=== PATIENT | female | born 1940 | race Caucasian/White ===

== ENCOUNTER 2020-12-08 12:42 | Outpatient (RCR) | payer MEDICARE, SELFPAY ==
[2020-12-08] MEDS: FAMOTIDINE 20 MG TABLET PO (14:05)
[2020-12-08] MEDS: ACETAMINOPHEN 325 MG TABLET 650 MG PO (14:05)
[2020-12-08] MEDS: diphenhydrAMINE HCl CAP 25 MG CAPSULE PO (14:05)
[2020-12-08 14:20] VITALS: BP 158/67; PULSE 65; RESP 18; TEMP 36.2; O2SAT 97
[2020-12-08 15:38] VITALS: BP 196/71
== END 2020-12-08 16:00 | disposition home or self-care (01) ==
LOC: AMCINF 12:42
PROVIDERS: PCP Family Medicine; Referring Provider Family Medicine; Visit Provider Internal Medicine Hematology & Oncology
DX: Z23 Encounter for immunization (principal); U07.1 COVID-19; I10 Essential (primary) hypertension
CPT/HCPCS: A9270; J7050; M0243

== ENCOUNTER → 2021-04-30 10:44 | Outpatient (CLI) | payer MEDICARE, SELFPAY ==
--- NOTE | ~2021-04-30 | XR_ITS ---
XR knee LT 3V 04/30/2021 11:39 Indication: Chronic left knee pain Procedure: 3 views left knee Comparison: No prior studies for comparison. Findings: There is mild-moderate osteoarthritis of the left knee. There is osteopenia. No acute fract ure or traumatic malalignment. No significant joint effusion. Impression: 1: Mild-moderate osteoarthritis of the left knee, most advanced in the patellofemoral compartment. Reviewed, dictated and finalized at location B. O COORDINATOR Impression: 1: Mild-moderate osteoarthritis of the left knee, most advanced in the patellof emoral compartment.
--- NOTE | ~2021-04-30 | XR_ITS ---
XR knee RT 3V 04/30/2021 11:40 Indication: Chronic right knee pain. Procedure: 3 views right knee Comparison: 10/11/2018 Findings: There is severe osteoarthritis of the right knee. No acute fracture, subluxation or disloca tion. No significant joint effusion. No foreign bodies. Impression: 1: Severe osteoarthritis of the right knee. Reviewed, dictated and finalized at location B. CIATE PROFESSOR OF AUTOMATION Impression: 1: Severe osteoarthritis of the right knee.
--- NOTE | ~2021-04-30 | XR_ITS ---
XR lumbar spine min 4V DATE: 04/30/2021 11:39 INDICATION: Low back pain TECHNIQUE: AP, lateral, coned lateral lumbosacral and bilateral oblique views COMPARISON: None FINDINGS: There is diffuse osteopenia. There is slight dextroscoliosis of the lumbar spine. There are 6 functional lumbar vertebrae. There is degenerative change at the apophyseal joints in the mid to lower lumbar and lumbosacral area with associated approximately 8 mm grade 1 anterolisthesis at L4-5. There is mild degenerative disease at L1-2 and L2-3, moderate degenerative disc disease at L3-4 and L 5-S1 and moderately severe degenerative disc disease at L4-5. No fracture or bone destruction of the lumbar spine. Included lower thoracic and lumbar pedicles are intact. The sacroiliac joints are normal. IMPRESSION: Osteopenia Multilevel degenerative disc disease, most pronounced at L4-5 Degenerative changes apophyseal joints with associated grade 1 anterolisthesis at L4-5 Reviewed, dictated and finalized at location A. BURNER
== END ==
PROVIDERS: PCP Family Medicine; Visit Provider Family Medicine
DX: M85.88 Other specified disorders of bone density and structure, other site (principal); M51.36 Other intervertebral disc degeneration, lumbar region; M17.0 Bilateral primary osteoarthritis of knee
CPT/HCPCS: 72110; 73562

== ENCOUNTER 2021-07-09 09:41 | Outpatient (CLI) | payer MEDICARE, SELFPAY ==
[2021-07-09 10:32] LABS: Basophils Absolute Auto 0.1 K/mm3 (0.0-0.1); Basophils Percent Auto 0.7 % (0.2-1.2); Eosinophils Absolute Auto 0.4 K/mm3 (0-0.3); Eosinophils Percent Auto 4.3 % (0-4.4); Hematocrit 44.2 % (37.0-47.0); Hemoglobin 14.4 g/dL (12.0-15.0); Immature Granulocyte Absolute 0.03 K/mm3 (0.00-0.031); Immature Granulocyte Percent A 0.4 % (0-0.5); Lymphocytes Absolute Auto 2.71 K/mm3 (0.9-3.2); Lymphocytes Percent Auto 33.1 % (18.3-44.2); Mean Corpuscular HGB Conc 32.6 g/dl (32-36); Mean Corpuscular Hemoglobin 30.6 pg (26-34); Mean Platelet Volume 9.9 fl (7.4-10.4); Monocytes Absolute Auto 0.6 K/mm3 (0.1-0.6); Monocytes Percent Auto 6.8 % (2.6-8.5); Neutrophils Absolute Auto 4.5 K/mm3 (1.3-6.7); Neutrophils Percent Auto 54.7 % (45.5-73.1); Platelet Count Result 282 k/mm3 (150-375); Red Cell Distribution Width 13.4 % (11.5-14.5); White Blood Count 8.2 K/mm3 (4.5-10.0)
[2021-07-09 10:41] LABS: Hemoglobin A1C 5.4 % (<5.7)
[2021-07-09 10:47] LABS: Alanine Aminotransferase 22 U/L (4-35); Albumin Level 4.3 g/dL (3.5-5.1); Alkaline Phosphatase 89 U/L (38-126); Anion Gap 6 mmol/L (8-16); Aspartate Amino Transferase 25 U/L (14-36); Bilirubin,Total 0.6 mg/dL (0.2-1.3); Blood Urea Nitrogen 19 mg/dL (7-17); Calcium 9.5 mg/dL (8.4-10.2); Carbon Dioxide 30 mmol/L (22-30); Chloride 104 mmol/L (98-107); Cholesterol 177 mg/dL (0-200); Estimated Glomerular Filt Rate > 60; Glucose 111 mg/dL (65-110); HDL Direct 62 mg/dL; Potassium 4.1 mmol/L (3.4-5.0); Sodium 140 mmol/L (137-145); Triglycerides 136 mg/dL (<150)
[2021-07-09 10:51] LABS: Iron 103 ug/dL (37-170)
[2021-07-09 11:03] LABS: LDL Cholesterol Direct 70 mg/dL
[2021-07-09 11:21] LABS: Percent Iron Saturation 32 % (20-50)
[2021-07-09 11:59] LABS: Folic Acid > 20.0 ng/mL (2.76->20); Vitamin B12 > 1000.0 pg/mL (239-931)
[2021-07-13 01:47] LABS: Vitamin D 1,25 (OH)2 Total 50 pg/mL (18-72); Vitamin D2 1,25 (OH)2 <8 pg/mL; Vitamin D3 1,25 (OH)2 50 pg/mL
== END 2021-07-09 09:42 | disposition home or self-care (01) ==
LOC: ANHLAB 09:45
PROVIDERS: PCP Family Medicine; Visit Provider Family Medicine
DX: R73.01 Impaired fasting glucose (principal); D64.9 Anemia, unspecified; E78.2 Mixed hyperlipidemia; E55.9 Vitamin D deficiency, unspecified
CPT/HCPCS: 36415; 80048; 80061; 80076; 82607; 82652; 82728; 82746; 83036; 83540; 83550; 84443; 85025

== ENCOUNTER 2022-03-05 09:38 | Outpatient (CLI) | payer MEDICARE, SELFPAY ==
[2022-03-05 10:26] LABS: Basophils Percent Auto 0.5 % (0.2-1.2); Eosinophils Absolute Auto 0.4 K/mm3 (0-0.3); Eosinophils Percent Auto 5.3 % (0-4.4); Hematocrit 40.8 % (37.0-47.0); Hemoglobin 13.5 g/dL (12.0-15.0); Immature Granulocyte Absolute 0.03 K/mm3 (0.00-0.031); Immature Granulocyte Percent A 0.4 % (0-0.5); Lymphocytes Absolute Auto 2.66 K/mm3 (0.9-3.2); Mean Corpuscular HGB Conc 33.1 g/dl (32-36); Mean Corpuscular Volume 93.8 fl (80-100); Monocytes Absolute Auto 0.4 K/mm3 (0.1-0.6); Monocytes Percent Auto 5.8 % (2.6-8.5); Platelet Count Result 256 k/mm3 (150-375); Red Blood Count 4.35 M/mm3 (4.2-5.4); Red Cell Distribution Width 13.2 % (11.5-14.5); White Blood Count 7.6 K/mm3 (4.5-10.0)
[2022-03-05 10:29] LABS: Alanine Aminotransferase 21 U/L (6-35); Albumin Level 4.3 g/dL (3.5-5.1); Alkaline Phosphatase 98 U/L (38-126); Anion Gap 8 mmol/L (8-16); Aspartate Amino Transferase 20 U/L (14-36); Bilirubin,Total 0.8 mg/dL (0.2-1.3); Blood Urea Nitrogen 18 mg/dL (7-17); Calcium 8.9 mg/dL (8.4-10.2); Carbon Dioxide 27 mmol/L (22-30); Chloride 106 mmol/L (98-107); Cholesterol 163 mg/dL (0-200); Estimated Glomerular Filt Rate > 60; Glucose 123 mg/dL (65-110); HDL Direct 60 mg/dL; Potassium 4.1 mmol/L (3.4-5.0); Sodium 141 mmol/L (137-145); Triglycerides 140 mg/dL (<150)
[2022-03-05 10:38] LABS: Hemoglobin A1C 5.9 % (<5.7)
[2022-03-05 10:39] LABS: LDL Cholesterol Direct 66 mg/dL
[2022-03-05 10:53] LABS: Iron 109 ug/dL (37-170)
[2022-03-05 11:02] LABS: Percent Iron Saturation 33 % (20-50)
[2022-03-05 11:02] LABS: Appearance Urine Slightly Cloudy (Clear); Bilirubin Urine Negative (Negative); Blood Urine Negative (Negative); Color Urine Yellow (Yellow); Glucose Urine UA Negative (Negative); Ketones Urine Negative (Negative); Leukocyte Esterase Ur Trace LEU/UL (NEGATIVE); Nitrate Urine Negative (Negative); Protein Urine Negative (Negative); Urobilinogen Urine 0.2 mg/dL (<2.0)
[2022-03-05 11:20] LABS: Bacteria Urine Trace /hpf; Mucus Urine Few /lpf; RBC Urine 0-2 /hpf (0-2); Squamous Epithelial Cell Urine Moderate /hpf (Few)
[2022-03-05 11:22] LABS: Add Urine Microscopic? YES
[2022-03-05 11:33] LABS: Folic Acid 16.7 ng/mL (2.76->20)
== END 2022-03-05 09:39 | disposition home or self-care (01) ==
LOC: ANHLAB 09:41
PROVIDERS: PCP Family Medicine; Visit Provider Family Medicine
DX: R41.0 Disorientation, unspecified (principal); E78.2 Mixed hyperlipidemia; D64.9 Anemia, unspecified; R73.01 Impaired fasting glucose
CPT/HCPCS: 36415; 80048; 80061; 80076; 81001; 82607; 82728; 82746; 83036; 83540; 83550; 84443; 85025; 87086; 87088

== ENCOUNTER 2022-07-09 10:36 | Outpatient (CLI) | payer MEDICARE, SELFPAY ==
[2022-07-09 12:57] LABS: Basophils Absolute Auto 0.1 K/mm3 (0.0-0.1); Basophils Percent Auto 0.6 % (0.2-1.2); Eosinophils Absolute Auto 0.3 K/mm3 (0-0.3); Eosinophils Percent Auto 2.8 % (0-4.4); Hematocrit 44.5 % (37.0-47.0); Hemoglobin 14.8 g/dL (12.0-15.0); Immature Granulocyte Absolute 0.03 K/mm3 (0.00-0.031); Immature Granulocyte Percent A 0.3 % (0-0.5); Lymphocytes Absolute Auto 2.66 K/mm3 (0.9-3.2); Lymphocytes Percent Auto 26.3 % (18.3-44.2); Mean Corpuscular HGB Conc 33.3 g/dl (32-36); Mean Corpuscular Hemoglobin 30.8 pg (26-34); Mean Corpuscular Volume 92.7 fl (80-100); Mean Platelet Volume 10.1 fl (7.4-10.4); Monocytes Absolute Auto 0.6 K/mm3 (0.1-0.6); Monocytes Percent Auto 6.1 % (2.6-8.5); Neutrophils Absolute Auto 6.5 K/mm3 (1.3-6.7); Neutrophils Percent Auto 63.9 % (45.5-73.1); Platelet Count Result 299 k/mm3 (150-375); Red Cell Distribution Width 13.4 % (11.5-14.5); White Blood Count 10.1 K/mm3 (4.5-10.0)
[2022-07-09 13:06] LABS: Prothrombin Time 12.3 Seconds (11.1-14.7)
[2022-07-09 13:07] LABS: Partial Thromboplastin Time 27.9 SECONDS (22.3-36.8)
[2022-07-09 14:11] LABS: Alanine Aminotransferase 23 U/L (6-35); Albumin Level 4.5 g/dL (3.5-5.1); Alkaline Phosphatase 104 U/L (38-126); Amylase 80 U/L (30-110); Aspartate Amino Transferase 23 U/L (14-36); Bilirubin,Total 0.8 mg/dL (0.2-1.3)
[2022-07-09 14:12] LABS: Iron 92 ug/dL (37-170)
[2022-07-09 14:27] LABS: Percent Iron Saturation 27 % (20-50)
[2022-07-09 15:24] LABS: Folic Acid 14.3 ng/mL (2.76->20)
== END 2022-07-09 10:37 | disposition home or self-care (01) ==
PROVIDERS: PCP Family Medicine; Visit Provider Family Medicine
DX: K62.5 Hemorrhage of anus and rectum (principal); R41.0 Disorientation, unspecified; R10.9 Unspecified abdominal pain; R35.0 Frequency of micturition
CPT/HCPCS: 36415; 80076; 82150; 82607; 82728; 82746; 83540; 83550; 84443; 85025; 85610; 85730

== ENCOUNTER 2022-12-01 09:38 | Outpatient (CLI) | payer MEDICARE, SELFPAY ==
[2022-12-01 10:29] LABS: Appearance Urine Clear (Clear); Bacteria Urine None Seen /hpf; Bilirubin Urine Negative (Negative); Blood Urine Negative (Negative); Color Urine Yellow (Yellow); Glucose Urine UA Negative (Negative); Ketones Urine Negative (Negative); Leukocyte Esterase Ur Trace LEU/UL (NEGATIVE); Nitrate Urine Negative (Negative); Protein Urine Negative (Negative); RBC Urine 0-2 /hpf (0-2); Specific Grav Ur 1.018 (1.001-1.035); Squamous Epithelial Cell Urine Few /hpf (Few); Urobilinogen Urine 0.2 mg/dL (<2.0); WBC Urine 0-5 /hpf (0-3)
[2022-12-01 10:42] LABS: Add Urine Microscopic? YES
[2022-12-01 10:43] LABS: Anion Gap 3 mmol/L (8-16); Blood Urea Nitrogen 16 mg/dL (7-17); Carbon Dioxide 31 mmol/L (22-30); Chloride 104 mmol/L (98-107); Cholesterol 296 mg/dL (0-200); Estimated Glomerular Filt Rate > 60; Glucose 121 mg/dL (65-110); HDL Direct 55 mg/dL; Potassium 4.2 mmol/L (3.4-5.0); Sodium 138 mmol/L (137-145); Triglycerides 226 mg/dL (<150)
[2022-12-01 10:46] LABS: Hemoglobin A1C 5.7 % (<5.7)
[2022-12-01 10:53] LABS: LDL Cholesterol Direct 181 mg/dL
== END 2022-12-01 09:39 | disposition home or self-care (01) ==
PROVIDERS: PCP Family Medicine; Visit Provider Family Medicine
DX: R35.0 Frequency of micturition (principal); E78.2 Mixed hyperlipidemia; R73.01 Impaired fasting glucose
CPT/HCPCS: 36415; 80048; 80061; 81001; 83036; 87086; 87088

== ENCOUNTER 2025-02-03 07:37 | Emergency (ER) | payer MEDICARE, SELFPAY ==
--- OUTSIDE RECORDS SUMMARY | 2008-12-04 02:45 | XMS_ITS | Continuity of Care Document ---
Author Organization [facility] Address [address] [facility] [address] [place] [address] Phone Care Team Providers Care Designer And Patternmaker Name Role Phone Thomason OD, Bola Unavailable Unavailable Procedures Procedure Date No Charge Glasses Check Eye Exam & Treatment Office/outpatient Visit, Est Visual Functional Status Assessed Office/outpatient Visit, Est Advance Directives Directive Yes / No Effective Date File Name No Information Encounters Encounter Description Practice Location Reason(s) For Visit Diagnoses Date Provider Providers Copied on Encounter [facility], [address] [place] [address] [address], [place], [place], [id number], [place] tel:[phone] [facility] No Information Sep-0 3-200 9 Thomason OD Bola. [address] [facility] [facility] [address] , [address], [place], [address], [place]. tel:[phone] [facility], [address] [place] [address] [address], [place], [place], [id number], [place] tel:[phone] SEC [facility] No Information Oct-0 1-200 8 Thomason OD Bola. [address] [facility] , [address], [place], [address], [place]. tel:[phone] Office/outpat ient Visit, Est [facility], [address] [place] [address] [address], [place], [place], [id number], [place] tel:[phone] SEC [facility] No Information Sep-2 8-200 7 Gideon Edbridger. [address] [facility] , [address], [place], [address], [place]. tel:[phone] Office/outpat ient Visit, [facility] Eye [facility], [address], [place], [place], [id number], [place] tel:[phone] SEC [facility] No Information Mar-3 0-200 7 Gideon Kemp. [address] [facility] , [address], [place], [address], [place]. tel:[phone] Family History Family Member Type Diagnosis Age At Onset No Information Payers Payer name Insurance type Covered republican ID Authoriza tion(s) No Information Social History Type Description Quantity Date Captured Comments Sex Female Smoking Status No Information Chief Complaint And Reason For Visit No Information Reason For Referral Reason For Referral No Information History Of Present Illness Encounter Date Complaint History Of Prese nt Illness No Information Functional Status Date Functional Assessmen t No Information Instructions Date Instruction Additional Infor mation No Information Assessments Type Assessment Date No Information Patient Care Teams Name Effective Dates (start - stop) Status Members No Information
--- OUTSIDE RECORDS SUMMARY | 2008-12-04 02:45 | XMS_ITS | Continuity of Care Document ---
Author Organization [facility] Address [address] [facility] [address] [place] [address] Phone Care Team Providers Care Linen Clerk Name Role Phone Thomason OD, Bola Unavailable Unavailable Procedures Procedure Date No Charge Glasses Check Eye Exam & Treatment Office/outpatient Visit, Est Visual Functional Status Assessed Office/outpatient Visit, Est Advance Directives Directive Yes / No Effective Date File Name No Information Encounters Encounter Description Practice Location Reason(s) For Visit Diagnoses Date Provider Providers Copied on Encounter [facility], [address] [place] [address] [address], [place], [place], [id number], [place] tel:[phone] SEC [facility] No Information Sep-0 3-200 9 Thomason OD Bola. [address] [facility] [address] [address] , [address], [place], [address], [place]. tel:[phone] [facility], [address] [place] [address] [address], [place], [place], [id number], [place] tel:[phone] SEC [facility] No Information Oct-0 1-200 8 Thomason OD Bola. [address] [facility] , [address], [place], [address], [place]. tel:[phone] Office/outpat ient Visit, Est [facility], [address] [place] [address] [address], [place], [place], [id number], [place] tel:[phone] SEC [facility] No Information Sep-2 8-200 7 Gideon Edbridger. [address] [facility] , [address], [place], [address], [place]. tel:[phone] Office/outpat ient Visit, [facility] Eye [facility], [address], [place], [place], [id number], [place] tel:[phone] SEC [facility] No Information Mar-3 0-200 7 Gideon Kemp. [address] [facility] , [address], [place], [address], [place]. tel:[phone] Family History Family Member Type Diagnosis Age At Onset No Information Payers Payer name Insurance type Covered constitution party ID Authoriza tion(s) No Information Social History [...]
--- NOTE | ~2025-02-03 | CT_ITS ---
EXAMINATION: CT abdomen pelvis w con DATE: 02/03/2025 09:08 INDICATION: Abdominal pain. Constipation. TECHNIQUE: Computed tomography (CT) of the abdomen and pelvis was performed with 100 mL Omnipaque 350 intravenous contrast. Automated exposure control and iterative reconstruction technique were employed. The dose-length product was 706.19 mGy-cm. COMPARISON: None. FINDINGS: The visualized portions of the lung bases demonstrate mild atelectasis. There is mild bronchiectasis bilaterally. No pleural effusion. The heart size is normal. There are coronary artery calcifications. No pericardial effusion. Calcified right hilar and paraesophageal lymph nodes are consistent with old granulomatous disease. The liver, gallbladder, spleen, pancreas, and adrenal glands are normal. There is cortical thinning of the kidneys. There are cysts in the kidneys measuring up to 7 mm on the left. There is a 3 mm stone in right kidney. Stool distends the rectum. There is diverticulosis of the colon without evidence of diverticulitis. The appendix is normal. There are no pathologically enlarged lymph nodes. There is no free intraperitoneal fluid. There is severe lumbar spondylosis. There are bridging endplate osteophytes at multiple levels in the thoracic spine, consistent with diffuse idiopathic skeletal hyperostosis (DISH). There is mild chronic anterior wedging of multiple thoracic vertebral bodies. IMPRESSION: 1. Stool distends the rectum. Reviewed, dictated and finalized at location E. APEUTIC ASSISTANT
--- OUTSIDE RECORDS SUMMARY | 2025-02-03 07:40 | XMS_ITS | Clinical Summary ---
Author Organization [facility] Address [address] [place] [address] Care Team Providers Care Technical Services Consultant Name Role Phone Terry Cook MD Primary Care Provider [phone] Allergies No known active allergies Medications atorvastatin (LIPITOR) 20 mg tablet Take 20 mg by mouth daily 1 Active meloxicam (MOBIC) 15 mg tablet TAKE 1 TABLET BY MOUTH DAILY NEEDED FOR PAIN 1 Active metFORMIN XR (GLUCOPHAGE XR) 500 mg 24 hr tablet Take 500 mg by mouth daily with breakfast 1 Active metoprolol (LOPRESSOR) 100 mg tablet Take 100 mg by mouth every 12 (twelve) hours 1 Active cyanocobalamin (Vitamin B-12) 100 mcg tabletIndicatio ns:Prevention of Vitamin B12 Deficiency Take 100 mcg by mouth daily Active cholecalciferol (VITAMIN D-3) 2000 unit capsule Take 2,000 Units by mouth daily Active amLODIPine (NORVASC) 5 mg tabletIndicatio ns:hypertension Take 1 tablet (5 mg total) by mouth daily 30 tablet 1 Active Active Problems Problem Noted Date Diagnosed Date COVID-19 12/15/2020 Hypertensive crisis 12/15/2020 Hyponatremia 12/15/2020 Hypokalemia 12/15/2020 Adverse effect of thiazide diuretic 12/15/2020 Abnormal urinalysis 12/15/2020 Mild cognitive impairment 12/15/2020 Hyperlipidemia associated with type 2 diabetes m ellitus 12/15/2020 Class 1 obesity due to exces s calories without serious comorbidity with body mass index (BMI) of 33.0 to 33.9 in adult 12/15/2020 Toxic metabolic encephalopathy 12/09/2020 Social History Tobacco Use Types Packs/Day Years Used Date Smoking Tobacco: Never Smokeless Tobacco: Never AUDIT-C Answer Date Recorded Q1: How often do you have a drink containing alc ohol? Never 12/09/2020 Average Number of Drinks Not on file 021 Frequency of Binge Drinking Not on file 11/2020 Personal Safety Answer Date Recorded Getting School Help Needed Not on file 06/03 Comments Unknown Sex and Gender Information Value Date Recorded Sex Assigned at Not on file Legal Sex Female 11:35 AM CDT Gender Identity Not on file Sexual Orientation Not on file Last Filed Vital Signs Vital Sign Reading Time Taken Comments Blood Pressure 160/82 12/10/2020 3:00 PM CDT Pulse 87 12/10/2020 3:00 PM CDT Temperature 36.6 C (97.9 F) 12/10/2020 3:00 PM CDT Respiratory Rate 18 12/10/2020 3:00 PM CDT Oxygen Saturation 96% 12/10/2020 3:00 PM CDT Inhaled Oxygen Concentration - - Weight 81.1 kg (178 lb 12.7 oz) 021 11:47 AM CDT Height 154.9 cm (5' 1) 12/09/2020 11:4 7 AM CDT Body Mass Index 33.78 12/09/2020 11:47 AM CDT Plan of Treatment Not on file Insurance MEDICARE MEDICARE Advance Directives For more information, please contact: [phone] * LIMITED - No CPR (Latest Code Status on File) Date Activated Date Inactivated Comments 12/09/2020 8:09 PM 12/10/2020 10:07 PM Question Answer Comments Provide aggressive medical m anagement before a full cardiopulmonary arrest occurs. Use antibiotics, IV Fluids, and medical treatment unless specifically selected below: No intubation * Full Code Date Activated Date Inactivated Comments 12/09/2020 7:12 PM 12/09/2020 8:09 PM Care Teams Technical Services Consultant Relationship Specialty Start Date End Date Terry Cook MD [id number] [address] PCP - General Family Medicine 12/09/20
[2025-02-03 07:46] VITALS: BP 186/79; PULSE 89; RESP 16; TEMP 36.6; O2SAT 99
[2025-02-03 08:23] LABS: Hematocrit 40.8 % (37.0-47.0); Hemoglobin 14.0 g/dL (12.0-15.0); Immature Granulocyte Percent A 0.3 % (0-0.5); Lymphocytes Absolute Auto 1.43 K/mm3 (0.9-3.2); Mean Corpuscular HGB Conc 34.3 g/dl (32-36); Mean Corpuscular Hemoglobin 30.7 pg (26-34); Mean Corpuscular Volume 89.5 fl (80-100); Nucleated Red Blood Cells Absolute Auto 0.000 K/mm3 (0.0-0.012); Nucleated Red Blood Cells Perc 0.0 % (0.0-0.2); Platelet Count Result 247 k/mm3 (150-375); Red Blood Count 4.56 M/mm3 (4.2-5.4); White Blood Count 10.1 K/mm3 (4.5-10.0)
--- OUTSIDE RECORDS SUMMARY | 2025-02-03 08:37 | XMS_ITS | Clinical Summary ---
Author Organization [facility] Address [address] [place] [address] Care Team Providers Care Processing Inspector Name Role Phone Terry Cook MD Primary Care Provider [phone] Allergies No known active allergies Medications atorvastatin [...] Advance Directives For more information, please contact: [phone] * LIMITED - No CPR (Latest Code [...] 7:12 PM 12/09/2020 8:09 PM Care Teams Processing Inspector Relationship Specialty Start Date End Date Terry Cook MD [id number] [address] PCP - General Family Medicine 12/09/20
[2025-02-03 08:54] LABS: Alanine Aminotransferase 19 U/L (6-35); Albumin Level 4.1 g/dL (3.5-5.1); Alkaline Phosphatase 70 U/L (38-126); Anion Gap 7 mmol/L (4-12); Aspartate Amino Transferase 30 U/L (14-36); Bilirubin,Total 1.2 mg/dL (0.2-1.3); Blood Urea Nitrogen 13 mg/dL (7-17); Calcium 8.7 mg/dL (8.4-10.2); Carbon Dioxide 22 mmol/L (22-30); Chloride 98 mmol/L (98-107); Estimated CRCL calculation 43 ml/min; Estimated Glomerular Filt Rate > 60; Glucose 119 mg/dL (65-110); Lipase 53 U/L (23-300); Potassium 4.3 mmol/L (3.4-5.0); Sodium 127 mmol/L (137-145); Total Protein 6.9 g/dL (6.3-8.2)
[2025-02-03 09:33] LABS: Add Urine Microscopic? YES; Appearance Urine Cloudy (Clear); Glucose Urine UA Negative (Negative); Leukocyte Esterase Ur 3+ LEU/UL (Negative); Nitrate Urine Negative (Negative); Non Pathogenic Casts 0-2; Specific Grav Ur 1.014 (1.001-1.035)
--- NOTE | 2025-02-03 09:36 | ED_ITS ---
HPI - Abdominal Pain General Chief Complaint: Abdominal Pain Stated Complaint: abdominal pain, constipation Time Seen by Provider: 02/03/25 07:44 History of Present Illness HPI narrative: Patient presents here with constipation for last 5 days, has not been above ago, had try some stool softeners without improvement. No abdominal pain just a sensation of fullness. Had been diagnosed with a urinary tract infection and given ciprofloxacin, before this started. Does not feel like her UTI has gone away. No nausea vomiting Related Data Home Medications ?Medication ?Instructions ?Recorded ?Confirmed ?Last Taken ?Type acetaminophen 500 mg capsule 500 mg PO Q6H PRN 4 01/21/25 Unknown History omega-3 250 wq-zuv-app-lutein 2.5 cap PO 04/13/2301/02 Unknown History mg-zeaxanthin 0.5 mg capsule ([facility]) ciprofloxacin HCl 250 mg tablet 250 mg PO BID 01/24/25 Unknown History Allergies Allergy/AdvReac Type Severity Reaction Status Date / Time No Known Allergies Allergy Verified 02/03/25 07:50 Review of Systems 2 Review of Systems: All systems reviewed & are unremarkable except as noted in HPI and below PMFSH Past Medical History Medical History (Reviewed 01/21/25 @ 07:10 by Chiqui Chung, [facility]) Candidiasis of breast At moderate risk for fall BMI 35.0-35.9,adult Obesity (BMI 35.0-39.9 without comorbidity) Neoplasm of skin of face (~12/01/22) 0.9 cm raised, pearly, macule right maxillary area suspicious for basal cell Candidiasis of genitalia in female Yeast vaginitis Arthritis of right shoulder region Chronic pain in right shoulder (~08/2022) UTI (urinary tract infection) (07/26/22) Urine culture was negative on 12/01/2022. Muscle spasm (~07/08/22) Frequent urination (~07/08/22) Functional memory problem (~2021) vitamin B12 517, folic acid 14.3, thyroid function normal with TSH 1.6 on 07/09/2022. cognitive testing score 2030 12/01/2022. Abdominal pain (~07/09/22) Amylase 80. Normal liver enzymes 07/09/2022. Rectal bleeding (~07/09/22) Confusion (~01/2022) Labs on 03/05/2022 were unremarkable with vitamin B12 572, folic acid 16.7, TSH 1.58. Migraine without aura and without status migrainosus, not intractable (~2020) Abnormal fasting glucose Fasting glucose 111 with hemoglobin A1c 5.4 on 07/09/2021. Glucose 123 with hemoglobin A1c 5.9 on 03/05/2022. Fasting glucose 121 with hemoglobin A1c 5.7 on 12/01/2022. Degenerative arthritis of knee, bilateral Hypertension Chronic low back pain without sciatica (~04/30/21) x-ray of the lumbar spine 04/30/2021 reveals diffuse osteopenia with severe degenerative disc disease at L4-L5 with 8 mm of anterolisthesis of L4 on L5 and diffuse degenerative changes. Chronic pain of right knee X-ray 04/30/2021 with severe tricompartmental osteoarthritis Dysphagia GERD (gastroesophageal reflux disease) Family History Family History (Reviewed 01/21/25 @ 07:10 by Chiqui Chung [facility]) Father Patient's father is , Onset Age: 90 Malignant neoplasm of prostate Grandparent Family history of Parkinson's disease Family history of Alzheimer's disease Mother Family history of malignant neoplasm of bone, Onset Age: 78 Sibling Heart disease Social History Social History (Updated 01/21/25 @ 07:47 by Lara Isaac [facility]) Smoking status: Never smoker Second hand tobacco smoke exposure: Yes Alcohol intake: never Substance use: never Substance use type: does not use Lack of Transportation: No Lack of Food: Never True Current Housing: I Have Housing Concerned About Future Housing: No Difficulty Paying Gas/Electric Bills: No Difficulty Paying for Meds: No Currently Unemployed: No Education: High School Diploma/GED Difficulty w/ Childcare or Family Care: No Living arrangements: alone Occupation/Education: retired 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 EYES: EOMI, conjunctiva normal ENT: Hearing grossly intact LUNGS: Nonlabored breathing. HEART: [Regular rate and rhythm] ABD: [Soft], [nontender to palpation] RECTAL: Brownish stool with some hemorrhoids, impacted hard stool with a tiny bit of bright red blood EXT: Normal range of motion SKIN: [No rashes or lesions.] NEURO: [Alert and oriented x 3. No gross focal sensory or strength deficits.] PSYCH: Normal affect Procedures Rectal Disimpaction Rectal Disimpaction #1: Rectal Disimpaction Date: 02/03/25 Indication: fecal impaction Procedural Sedation: No Sedation/Analgesia: none Technique: manual disimpaction with gloved finger Result: significant stool output Patient Tolerated Procedure: well and no complications Course Vital Signs Vital signs: Vital Signs Temperature 97.8 F 02/03/25 07:46 Pulse Rate 89 02/03/25 07:46 Respiratory Rate 16 02/03/25 07:46 Blood Pressure 186/79 H 02/03/25 07:46 Pulse Oximetry 99 02/03/25 07:46 Oxygen Delivery Room Air 02/03/25 07:46 Temperature 97.8 F 02/03/25 07:46 Pulse Rate 86 02/03/25 10:39 Respiratory Rate 20 02/03/25 10:39 Blood Pressure 155/53 H 02/03/25 10:39 Pulse Oximetry 100 02/03/25 10:39 Oxygen Delivery Room Air 02/03/25 07:46 MDM - Abdominal Pain MDM Narrative Medical decision making narrative: Patient presenting with constipation, she also feels like her UTI symptoms have been persistent despite antibiotics. She does state that she had tried using toothbrush to help loosen her stool and noticed some blood so stopped; this is several days ago. Her family also tried giving her some MiraLax and a suppository but did not work. She is well-appearing, as your soft nontender, on rectal exam she does have impacted stool, a tiny bit of bright red blood but nothing significant, stool is grossly brown. CT just shows stool distending rectum, patient agreeable to manual disimpaction at this time. She does also appear to have a UTI so I will give her dose of ceftriaxone and trial a different kind of antibiotic. Her sodium is on the lower side, will be given fluids, discussed with patient she needs follow-up with her doctor for repeat Patient tolerated procedure quite well, on re-evaluation feels better, very large amount of stool disimpacted. Will give MiraLax and Augmentin prescription with strict return precautions. Patient agreeable to plan Lab Data 02/03/25 08:15 02/03/25 08:15 Labs: Lab Results 02/03/25 02/03/25 Range/Units 08:15 09:20 WBC 10.1 H (4.5-10.0) K/mm3 RBC 4.56 (4.2-5.4) M/mm3 Hgb 14.0 (12.0-15.0) g/dL Hct 40.8 (37.0-47.0) % MCV 89.5 (80-100) fl MCH 30.7 (26-34) pg MCHC 34.3 (32-36) g/dl RDW 13.2 (11.5-14.5) % Plt Count 247 (150-375) k/mm3 MPV 9.5 (7.4-10.4) fl Immature Gran % (Auto) 0.3 (0-0.5) % Neut % (Auto) 76.6 H (45.5-73.1) % Lymph % (Auto) 14.2 L (18.3-44.2) % [place] % (Auto) 7.8 (2.6-8.5) % Eos % (Auto) 0.9 (0-4.4) % Baso % (Auto) 0.2 (0.2-1.2) % Lymph # (Auto) 1.43 (0.9-3.2) K/mm3 [place] # (Auto) 0.8 H (0.1-0.6) K/mm3 Eos # (Auto) 0.1 (0-0.3) K/mm3 Baso # (Auto) 0.0 (0.0-0.1) K/mm3 Abs Immat Gran (auto) 0.03 (0.00-0.031) K/mm3 Absolute Neuts (auto) 7.7 H (1.3-6.7) K/mm3 Absolute Nucleated RBC 0.000 (0.0-0.012) K/mm3 Nucleated RBC % 0.0 (0.0-0.2) % Sodium 127 L (137-145) mmol/L Potassium 4.3 (3.4-5.0) mmol/L Chloride 98 (98-107) mmol/L Carbon Dioxide 22 (22-30) mmol/L Anion Gap 7 (4-12) mmol/L BUN 13 (7-17) mg/dL Creatinine 0.78 (0.7-1.0) mg/dL Estim Creat Clear Calc 43 ml/min Estimated GFR > 60 (59 - ) Glucose 119 H (65-110) mg/dL Calcium 8.7 (8.4-10.2) mg/dL Total Bilirubin 1.2 (0.2-1.3) mg/dL AST 30 (14-36) U/L ALT 19 (6-35) U/L Alkaline Phosphatase 70 (38-126) U/L Total Protein 6.9 (6.3-8.2) g/dL Albumin 4.1 (3.5-5.1) g/dL Lipase 53 (23-300) U/L Urine Color Yellow (Yellow) Urine Appearance Cloudy H (Clear) Urine pH 6.5 (5.0-9.0) Ur Specific [place] 1.014 (1.001-1.035) Urine Protein Negative (Negative) mg/dL Urine Glucose (UA) Negative (Negative) mg/dL Urine Ketones 1+ H (Negative) mg/dL Ur Blood (Man) Trace (Negative) Urine Nitrate Negative (Negative) Urine Bilirubin Negative (Negative) Urine Urobilinogen 0.2 (<2.0) mg/dL Leukocyte Esterase Rfl 3+ H (Negative) YVONNE/UL Urine RBC 0-2 (0-2) /hpf Urine WBC >100 H (0-3) /hpf Ur Squamous Epith Cells Few (Few) /hpf Urine Bacteria Rare /hpf Urine Casts 0-2 Imaging Data Radiologist's impression: ITS Impressions Abdomen/Pelvis CT 02/03/25 09:13 IMPRESSION: 1. Stool distends the rectum. Discharge Plan Discharge Clinical Impression: Constipation, Acute UTI Patient Disposition: Home Condition: Stable Instructions: Antibiotic Form, Constipation (ED), Urinary Tract Infection in Women (ED) Additional Instructions: Please follow up with your doctor; your sodium was lower today and you should have it checked again in the next few days. Please take the medications as prescribed. You can always return for any further issues. Patient Language: Danish Prescriptions: New amoxicillin-pot clavulanate 875-125 mg tablet 1 tablet PO Q12H Qty: 14 0RF polyethylene glycol 3350 [Miralax] 17 gram/dose powder 17 g PO DAILY PRN (Reason: constipation) Qty: 238 0RF bisacodyl [Dulcolax (bisacodyl)] 10 mg suppository 10 mg RECTAL DAILY PRN (Reason: constipation) Qty: 12 0RF No Action [facility] 250-2.5-0.5 mg capsule PO acetaminophen 500 mg capsule 500 mg PO Q6H PRN terconazole 0.4 % cream 5 g vaginal QHS 7 Days Qty: 45 5RF nystatin 100,000 unit/gram powder 1 applic topical BID Qty: 60 11RF Rx Instructions: apply to rash in skin folds twice daily until clear amlodipine 5 mg tablet 5 mg PO DAILY Qty: 90 3RF metoprolol tartrate 100 mg tablet 100 mg PO Q12H Qty: 180 3RF ciprofloxacin HCl 250 mg tablet 250 mg PO BID Patient Comments: b.i.d. for 3 days for UTI 01/24/2025 Follow-up/Referrals: Terry Cook MD [Primary Care Provider, Family Practice] - 2 Days
[2025-02-03] MEDS: cefTRIAXone 1 GM in SODIUM CHLORIDE 0.9% IV 50 ML 100 ML IVPB (10:03)
[2025-02-03] MEDS: SODIUM CHLORIDE 0.9% IV 1,000 ML 999 ML IV CONT (10:04)
[2025-02-03 10:39] VITALS: BP 155/53; PULSE 86; RESP 20; O2SAT 100
== END 2025-02-03 11:07 | disposition home or self-care (01) ==
PROVIDERS: Emergency Provider Emergency Medicine; PCP Family Medicine
DX: K59.00 Constipation, unspecified (principal); N39.0 Urinary tract infection, site not specified; I10 Essential (primary) hypertension; K21.9 Gastro-esophageal reflux disease without esophagitis; M19.90 Unspecified osteoarthritis, unspecified site; G89.29 Other chronic pain
CPT/HCPCS: 36415; 74177; 80053; 81001; 83690; 85025; 87086; 96365; 99284; J0696; J7030; Q9967